=== PATIENT | male | born 1985 | race Two or more races ===

== ENCOUNTER 2017-01-27 12:26 | Emergency (ER) | payer OTHER ==
[~2017-01-27] VITALS: Ht 172.7 cm; Wt 99.7 kg
[~2017-01-27 12:26] MED LIST: [UNRECOGNIZED DRUG - REMARK]
[2017-01-27 13:02] VITALS: BP 135/88; PULSE 77; RESP 16; TEMP 98.3; O2SAT 95
--- NOTE | 2017-01-27 14:05 | PD ---
HPI . Foreign body in eye Chief Complaint: Eye Problems/Injury Time Seen by Provider: 13:46 Travel History International Travel<30 days: No Contact w/Intl Traveler<30days: No Traveled to known affect area: No History of Present Illness HPI 32-year-old male patient presents emergency department for evaluation of foreign body in his left eye. 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 Patient states he tried to get the aluminum out that it was extremely painful. Patient is not a contact lens wearer. Extraocular motion intact. Patient denies any visual disturbances at this time. PFSH Past Medical History Asthma: Yes Anxiety: Yes Cancer: No Cardiovascular Problems: No Diabetes: No Diminished Hearing: No Endocrine: No Gastrointestinal Disorders: No Genitourinary: No Hepatitis: No Hiatal Hernia: No Immune Disorder: No Musculoskeletal: No Neurologic: No Psychiatric: No Reproductive: No Respiratory: Yes (ASTHMA) Thyroid Disease: No Tetanus Vaccination: Unknown Influenza Vaccination: Yes (UNKNOWN WHAT YEAR - GREATER THAN 5 YEARS) Past Surgical History AICD: No Genitourinary Surgery: Yes (KIDNEY STONES) Joint Replacement: No Pacemaker: No Other Surgery: Yes Social History Alcohol Use: Yes (OCCASIONAL) Tobacco Use: Yes (3-4 CIGARETTES DAILY) Substance Use: No Allergies-Medications (Allergen,Severity, Reaction): Coded Allergies: No Known Allergies (Verified Adverse Reaction, Unknown, 01/27/17) Reported Meds & Prescriptions Reported Meds & Active Scripts Active Erythromycin Opth Oint 5 Mg/Gm Oint 1 Applic LEFT EYE QID 5 Days Review of Systems Except as stated in HPI: all other systems reviewed are Neg Eyes: Positive: Foreign Body Sensation Physical Exam Narrative GENERAL: Well-nourished, well-developed 32-year-old male patient in no acute distress. Nontoxic appearing. SKIN: Focused skin assessment warm/dry. HEAD: Normocephalic. Atraumatic. EYES: No injection noted.. No Fluorescein dye uptake noted. PERRLA demonstrated , extraocular motions intact bilaterally. Visual acuity: Right eye 20/40, left eye 20/70, bilateral eyes 20/20. NECK: Supple, trachea midline. No JVD or lymphadenopathy. CARDIOVASCULAR: Regular rate and rhythm without murmurs, gallops, or rubs. RESPIRATORY: Breath sounds equal bilaterally. No accessory muscle use. GASTROINTESTINAL: Abdomen soft, non-tender, nondistended. MUSCULOSKELETAL: No cyanosis, or edema. Data Data Last Documented VS Vital Signs Date Time Temp Pulse Resp B/P (MAP) Pulse Ox O2 Delivery O2 Flow Rate FiO2 01/27/17 13:02 98.3 77 16 135/88 (104) 95 Orders Orders Proparacaine 0.5% Opth Soln (Alcaine 0.5 (01/27/17 14:15) Ed Discharge Order (01/27/17 14:32) [facility] Medical Decision Making Medical Screen Exam Complete: Yes Emergency Medical Condition: Yes Differential Diagnosis Differential diagnoses include but are not limited to foreign body left eye, corneal abrasion, eye trauma, conjunctivitis Narrative Course 32-year-old male patient presents emergency department for evaluation of foreign body in his left eye. Patient was cutting aluminum in his job and a sliver of aluminum splint his left eye and he cannot get it out. Patient states is very painful. Patient denies any visual disturbances. Proparacaine eye drops were administered to the left eye. Left eye was irrigated thoroughly. Foreign body was removed with irrigation. Fluorescein dye and Wood 's lamp used to evaluate for corneal abrasion subsequently. No fluorescein dye uptake noted. Patient is discharged home with prophylactic erythromycin ophthalmic ointment and instructions to follow-up with primary care, service director or return to the emergency Department with any worsening condition. Patient up-to-date on his tetanus vaccine. Diagnosis Primary Impression: Foreign body, eye Qualified Codes: T15.92XA - Foreign body on external eye, part unspecified, left eye, initial encounter Referrals: [employer] Primary Care Physician Patient Instructions: Eye Foreign Body (ED), General Instructions Additional Instructions: Please return to emergency department if your symptoms return or worsen. Follow up with your primary care provider. Follow-up with ophthalmology if symptoms persist. Use erythromycin eye ointment 4 times a day for 5 days. Wears safety glasses when cutting metal Med/Other Pt SpecificInfo: Prescription(s) given Scripts Erythromycin Opth Oint (Erythromycin Opth Oint) 5 Mg/Gm Oint 1 APPLIC LEFT EYE QID for Infection for 5 Days, #1 TUBE 0 Refills Prov: Millie Woodward 01/27/17 Disposition: 01 DISCHARGE HOME Condition: Stable Millie Woodward Jan 27, 2017 14:05
[2017-01-27] MEDS ORDERED: PROPARACAINE HCL 0.5% OPHT SOLN 15 ML BTL LEFT EYE ONE (14:15)
[2017-01-27] MEDS ORDERED: ERYTOIN10 LEFT EYE (14:29)
== END 2017-01-27 14:51 | disposition home or self-care (01) ==
LOC: PHED 12:26 → PHEFT 14:51
DX: T15.92XA Foreign body on external eye, part unspecified, left eye, initial encounter (principal)
CPT/HCPCS: 99283